=== PATIENT | male | born 1990 | race Caucasian/White ===

== ENCOUNTER 2021-01-27 20:43 | Inpatient (IN) | payer OTHER ==
[~2021-01-27] VITALS: Ht 182.9 cm; Wt 99.8 kg
[2021-01-27 20:55] VITALS: BP 128/71
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
[2021-01-27 21:12] LABS: BASOPHILS # (AUTO) 0.1 K/uL (0.00-0.22); BASOPHILS % (AUTO) 0.8 % (0.0-2.0); EOSINOPHILS # (AUTO) 0.1 K/uL (0-0.4); EOSINOPHILS % (AUTO) 1.1 % (0.0-4.0); HEMATOCRIT 45.1 % (36-52); HEMOGLOBIN 15.2 g/dL (12.0-18.0); LYMPHOCYTES # (AUTO) 2.3 K/uL (2.0-11.5); LYMPHOCYTES % (AUTO) 23.5 % (20.5-51.1); MEAN CORPUSCULAR HEMOGLOBIN 30 pg (27-31); MEAN CORPUSCULAR HGB CONC 34 g/dL (33-37); MONOCYTES # (AUTO) 0.6 K/uL (0.8-1.0); MONOCYTES % (AUTO) 6.3 % (1.7-9.3); NEUTROPHILS # (AUTO) 6.6 K/uL (1.8-7.7); NEUTROPHILS % (AUTO) 68.3 % (42.2-75.2); PLATELET COUNT (AUTO) 284 K/uL (140-450); RED BLOOD CELL COUNT(AUTO) 5.01 MIL/uL (4.20-6.10); RED CELL DISTRIBUTION WIDTH 13.4 % (11.6-13.7); WHITE BLOOD COUNT (AUTO) 9.6 K/uL (4.8-10.8)
[2021-01-27] MEDS ORDERED: NALOXONE 0.4 MG/ML VIAL IVP ONE (21:25)
[2021-01-27 21:29] LABS: ALBUMIN 3.8 g/dL (3.4-5.0); CARBON DIOXIDE 31.5 mmol/L (21-32); CREATININE 1.4 mg/dL (0.6-1.3); POTASSIUM 3.5 mmol/L (3.5-5.1); TOTAL BILIRUBIN 0.2 mg/dL (0.0-1.0)
[2021-01-27] MEDS ORDERED: NALOXONE 0.4 MG/ML VIAL ONE (21:43)
--- NOTE | 2021-01-27 22:08 | NUR ---
PATIENT LAYING IN BED LOCKED IN LOWEST POSITION W X2 SIDE RAILS UP FOR PATINET SAFETY. BREATHING EVEN AND UNLABORED. PATIENT DENIES ANY PMH, OR ALLERGIES. DENIES ANY PAIN OR NAUSEA. PATIENT CONTINUES TO FALL ASLEEP. AWAKENS WHEN SPOKEN TO AND RETURNS TO SLEEP. PATIENT AOX4. REPORTS SOB. CONNECTED TO MONITOR W VSS. ON 15L NON-REBREATHER 99 O2 SAT, 14RR. ERMD AWARE.
--- NOTE | 2021-01-28 00:08 | NUR ---
PATIENT LAYING SUPINE IN BED W EYES CLOSED. BED LOCKED IN LOWEST POSITION W X2 SIDERAILS UP FOR PATIENT SAFETY. BREATHING EVEN AND UNLABORED. CONNECTED TO MONITOR W VSS. ON NON-REBREATHER AT 15L. VSS.
[2021-01-28] MEDS ORDERED: DOCUSATE SODIUM 100 MG GELCAP PO PRN (00:15)
[2021-01-28] MEDS ORDERED: MORPHINE SULFATE 2 MG/ML SYR IVP PRN (00:15)
[2021-01-28] MEDS ORDERED: HYDROcodone/APAP 5/325 MG 1 TAB TAB PO PRN (00:15)
[2021-01-28] MEDS ORDERED: ZOLPIDEM 5 MG TAB PO PRN (00:15)
[2021-01-28] MEDS ORDERED: MAG SULF 2000 MG/WATER PREMIX 50 ML IV PRN (00:15)
[2021-01-28] MEDS ORDERED: SODIUM PHOS / POTASSIUM PHOS 1 PKT PDR PO PRN (00:15)
[2021-01-28] MEDS ORDERED: POTASSIUM CHLORIDE 10 MEQ TABER PO PRN (00:15)
[2021-01-28] MEDS ORDERED: NACL 0.9% 1,000 ML IV SCH (00:15)
[2021-01-28] MEDS ORDERED: LORazepam 2 MG/ML VIAL IM/IVP PRN (00:15)
[2021-01-28] MEDS ORDERED: ONDANSETRON 4 MG/2 ML VIAL IVP PRN (00:15)
[2021-01-28] MEDS ORDERED: ACETAMINOPHEN 325 MG TAB PO PRN (00:15)
[2021-01-28 00:50] LABS: CHOL/HDL RATIO 3.5 (1-4.5); FREE T4 (FREE THYROXINE) 1.01 ng/dL (0.76-1.46); PHOSPHORUS 5.2 mg/dL (2.5-4.9); THYROID STIMULATING HORMONE 2.99 uIU/mL (0.34-3.74)
[2021-01-28 00:54] LABS: PROTHROMBIN TIME 9.1 secs (10.8-13.4)
--- NOTE | 2021-01-28 01:48 | NUR ---
PATIENT UNABLE TO PROVIDE URINE AT THIS TIME. PROVIDED PATIENT W WATER. PATIENT DRINKING WATER AT THIS TIME.
--- NOTE | 2021-01-28 03:45 | NUR ---
PATIENT LAYING SUPINE IN BED W EYES CLOSED. BED LOCKED IN LOWEST POSITION W X2 SIDERAILS UP FOR PATIENT SAFETY. BREATHING EVEN AND UNLABORED. CONNECTED TO MONITOR W VSS. ON NON-REBREATHER AT 10L O2 SAT AT 100%. VSS.
--- NOTE | 2021-01-28 03:50 | NUR ---
PATIENT REPORTS HE WILL ATTEMPT TO PROVIDE URINE SAMPLE, URINAL PROVIDED.
[2021-01-28] MEDS ORDERED: PIPERACILLIN/TAZOBACTAM 3.375 GM in DEXTROSE 5% 50 ML IV SCH (05:00)
[2021-01-28] MEDS ORDERED: PIPERACILLIN/TAZOBACTAM 3.375 GM VIAL IV ONE (05:03)
--- NOTE | 2021-01-28 05:10 | NUR ---
PATIENT SITTING IN BED LOCKED IN LOWEST POSITION, HOB ELEVATED, X2 SIDERAILS UP FOR PATIENT SAFETY. PATIENT REFUSING TO BE ON THE RE-BREATHER AT THIS TIME. PATIENT 02 SAT AT 93% ON ROOM AIR. PATIENT REFUSING TO PROVIDE URINE AT THIS TIME. WILL CONTINUE TO MONITOR.
[2021-01-28 05:50] VITALS: BP 116/72
--- NOTE | 2021-01-28 05:50 | NUR ---
Reese hoover in [facility] - 01/28/21 at 0606 by QUINTON PATIENT SIGNED AMA FORM.
--- NOTE | 2021-01-28 05:50 | NUR ---
Patient does not wish to proceed with medical care recommended by . Patient given information related to possible complications, up to and including , which could occur as a result of leaving hospital at this time. Patient verbalizes understanding of risks involved leaving against medical advice. Patient has signed AMA form.
--- NOTE | 2021-01-28 05:50 | NUR ---
PATIENT STANDING UP, PATIENT REPORTING HE WILL BE LEAVING. PATIENT REMOVED OWN CATHETER. PROVIDED PATIENT EDUCATION/INFORMATION ON MEDICAL STATUS AND RECOMENDATION FOR ADMISION. PATIENT REPORTS HE WILL BE LEAVING. ADMIN DOCTOR MADE AWARE.
== END 2021-01-28 05:50 | disposition left against medical advice (07) | DRG 816 ==
LOC: MED 20:43 → MTU 01-28 00:15
PROVIDERS: ADMIT Family Medicine; ATTEND Family Medicine
DX: T40.1X1A Poisoning by heroin, accidental (unintentional), initial encounter (principal); J96.01 Acute respiratory failure with hypoxia; J69.0 Pneumonitis due to inhalation of food and vomit; Z20.822 Contact with and (suspected) exposure to COVID-19; Z53.29 Procedure and treatment not carried out because of patient's decision for other reasons; Y92.89 Other specified places as the place of occurrence of the external cause
CPT/HCPCS: 36415; 71045; 80053; 82150; 83036; 83690; 83880; 84100; 84439; 84443; 84484; 85025; 85610; 85730; 93005; 96374; 99291; J2310; J2543; J7060; Q0092

== ENCOUNTER 2022-04-23 14:23 | Emergency (ER) | payer OTHER ==
[~2022-04-23] VITALS: Ht 175.3 cm; Wt 81.6 kg
[2022-04-23 14:27] VITALS: BP 124/80
--- NOTE | 2022-04-23 14:42 | NUR ---
PATIENT LEFT WITHOUT BEING SEEN BY DR. JUNIOR. NO FURTHER CARE PROVIDED FOR PATIENT.
== END 2022-04-23 14:42 | disposition left against medical advice (07) ==
LOC: MED 14:23
DX: T40.411A Poisoning by fentanyl or fentanyl analogs, accidental (unintentional), initial encounter (principal); Z53.21 Procedure and treatment not carried out due to patient leaving prior to being seen by health care provider; Y92.89 Other specified places as the place of occurrence of the external cause